=== PATIENT | female | born 1950 | race Caucasian/White ===

== ENCOUNTER 2017-11-27 11:57 | Inpatient (IN) | payer MEDICARE ==
[~2017-11-27] VITALS: Ht 167.6 cm; Wt 108.6 kg
[~2017-11-27 11:57] MED LIST: ACET-76 PO; ADAL20KI SC; ADAL40KI; ALEN35TA6 PO; AMLO5TAB2; AMLO5TAB2 PO; ANTIBIOTIC PO; CALC500T93 PO; CALCIUM PO; CELE100C PO; CEPH-368 PO; CHOL3000 PO; CLIN300C3 PO; DICL100G19; DICL100G19 TD; DICL100G19 TP; DOCU-131 PO; DULO30CA2 PO; DULO60CA7 PO; EPIN0.3A3 IM; FERR324T8 PO; FOLI-17; HYDR12.53; HYDR200T72 PO; LIDO700A5 TD; LISI-167 PO; LISI1TAB5 PO; LISI20TA; METH2.5T25; METO10TA82 PO; MULT-230 PO; MUPI22OI2 TP; PANT40TA5; PANT40TA5 PO; PRED2.5T PO; PRED5TAB26; ROSU40TA PO; SODI650T PO; TRAM50TA2 PO; VITA1TAB38; epi pen
[2017-11-27] MEDS ORDERED: LACTATED RINGERS 1,000 ML IV SCH (13:08)
[2017-11-27] MEDS ORDERED: TOBRAMYCIN SULFATE 1.2 GM IMP ONE (13:36)
[2017-11-27] MEDS ORDERED: MIDAZOLAM 1 MG/ML, 2ML ONE (15:02)
[2017-11-27] MEDS ORDERED: ONDANSETRON 2MG/ML, 2ML ONE ×2 (15:27→19:10)
[2017-11-27] MEDS ORDERED: LABETALOL 5MG/ML, 20ML ONE (15:27)
[2017-11-27] MEDS ORDERED: DEXAMETHASONE 4 MG/ML, 1ML ONE (15:27)
[2017-11-27] MEDS ORDERED: PROPOFOL 10 MG/ML, 50ML ONE (15:27)
[2017-11-27] MEDS ORDERED: CLINDAMYCIN 150 MG/ML, 6ML ONE (15:39)
[2017-11-27] MEDS ORDERED: ALBUTEROL SULFATE 2.5 MG/3 ML NPPB PRN (17:00)
[2017-11-27] MEDS ORDERED: OXYcodone 5 MG/5 ML ORAL.SOL UDC PO PRN (17:00)
[2017-11-27] MEDS ORDERED: HYDROmorphone 1 MG/ML, 1ML IV PRN ×2 (17:00→21:30)
[2017-11-27] MEDS ORDERED: LABETALOL 5MG/ML, 20ML IV PRN (17:00)
[2017-11-27] MEDS ORDERED: KETOROLAC 30 MG/1 ML IV PRN (17:00)
[2017-11-27] MEDS ORDERED: PROMETHAZINE 25 MG/ML, 1ML IV PRN (17:00)
[2017-11-27] MEDS ORDERED: ONDANSETRON ODT 8 MG PO PRN (17:00)
[2017-11-27] MEDS ORDERED: HYDROmorphone 2 MG/ML, 1ML ONE (17:20)
[2017-11-27] MEDS: ONDANSETRON 2MG/ML, 2ML IV PRN (19:16)
[2017-11-27] MEDS ORDERED: BISACODYL 10 MG SUPP PR PRN (21:00)
[2017-11-27] MEDS: SODIUM CHLORIDE FLUSH 10ML SYR IVF SCH (21:00)
[2017-11-27] MEDS ORDERED: ACETAMINOPHEN 500 MG TABLET PO PRN (21:30)
[2017-11-27] MEDS ORDERED: ONDANSETRON 2MG/ML, 2ML IV PRN (21:30)
[2017-11-27] MEDS ORDERED: ALENDRONATE 35 MG TABLET PO SCH (21:30)
[2017-11-27] MEDS: POTASSIUM CHLORIDE 20 MEQ in D5%-0.45% NACL 1,000 ML IV SCH (21:54)
[2017-11-27] MEDS: DOCUSATE 100 MG CAPSULE PO SCH (21:55)
[2017-11-27] MEDS: CLINDAMYCIN PMX 900MG/50ML 50 ML IVPB SCH (23:25)
[2017-11-28 00:50] VITALS: BP 111/69
[2017-11-28 07:17] VITALS: BP 114/72
[2017-11-28] MEDS: CLINDAMYCIN PMX 900MG/50ML 50 ML IVPB SCH (08:06)
[2017-11-28] MEDS ORDERED: AMLODIPINE 5 MG TABLET PO SCH (09:00)
[2017-11-28] MEDS ORDERED: HYDROmorphone 1 MG/ML, 1ML IV PRN (09:30)
[2017-11-28] MEDS: PANTOPROZOLE 40MG TABLET PO SCH ×2 (09:37→20:28)
[2017-11-28] MEDS: MULTIVITAMINS/MINERALS TABLET PO SCH ×2 (09:37→20:28)
[2017-11-28] MEDS: FERROUS GLUCONATE 324 MG TABLET PO SCH (09:37)
[2017-11-28] MEDS: DULOXETINE 30 MG CAPSULE.DR PO SCH ×2 (09:37→20:28)
[2017-11-28] MEDS: DOCUSATE 100 MG CAPSULE PO SCH ×4 (09:37→20:29)
[2017-11-28] MEDS: CHOLECALCIFEROL 1,000 UNIT TABLET PO SCH (09:38)
[2017-11-28 09:45] VITALS: BP 98/54
[2017-11-28] MEDS: CALCIUM CARBONATE 500 MG TABLET PO SCH (09:53)
[2017-11-28] MEDS: LISINOPRIL 10 MG TABLET PO SCH (09:55)
[2017-11-28] MEDS: SODIUM CHLORIDE FLUSH 10ML SYR IVF SCH ×2 (09:58→20:29)
[2017-11-28] MEDS ORDERED: LIDODERM 5% PATCH TD PRN (10:30)
[2017-11-28] MEDS: HYDROmorphone 2MG TABLET PO PRN ×3 (10:34→20:28)
[2017-11-28] MEDS: SODIUM BICARBONATE 650 MG TABLET PO SCH ×2 (10:34→20:28)
[2017-11-28] MEDS: ONDANSETRON 2MG/ML, 2ML IV PRN (11:16)
[2017-11-28] MEDS ORDERED: ACETAMINOPHEN 500 MG TABLET PO PRN (11:30)
[2017-11-28] MEDS: POTASSIUM CHLORIDE 20 MEQ in D5%-0.45% NACL 1,000 ML IV SCH (12:13)
[2017-11-28] MEDS ORDERED: HYDROmorphone 2 MG/ML, 1ML ONE ×3 (12:47→23:27)
[2017-11-28] MEDS: HYDROmorphone 1 MG/ML, 1ML IV PRN ×3 (12:57→23:30)
[2017-11-28] MEDS: ACETAMINOPHEN 500 MG TABLET PO PRN ×2 (15:30→21:40)
[2017-11-28 15:39] VITALS: BP 118/61
[2017-11-28] MEDS: ASPIRIN 325 MG TABLET PO SCH (18:13)
[2017-11-28] MEDS: SENNA/DOCUSATE TABLET PO PRN (18:14)
[2017-11-28 19:58] VITALS: BP 95/54
[2017-11-28] MEDS: ATORVASTATIN 80 MG TABLET PO SCH (20:28)
[2017-11-29] MEDS: HYDROmorphone 2MG TABLET PO PRN ×5 (00:29→18:16)
[2017-11-29 00:59] VITALS: BP 113/63
[2017-11-29] MEDS: POTASSIUM CHLORIDE 20 MEQ in D5%-0.45% NACL 1,000 ML IV SCH ×2 (02:39→13:54)
[2017-11-29] MEDS: ACETAMINOPHEN 500 MG TABLET PO PRN ×2 (04:38→13:24)
[2017-11-29] MEDS ORDERED: HYDROmorphone 2 MG/ML, 1ML ONE ×2 (06:18→10:40)
[2017-11-29] MEDS: HYDROmorphone 1 MG/ML, 1ML IV PRN ×3 (06:25→15:00)
[2017-11-29 06:50] VITALS: BP 103/62
[2017-11-29] MEDS: MULTIVITAMINS/MINERALS TABLET PO SCH ×2 (09:00→20:58)
[2017-11-29] MEDS: SODIUM CHLORIDE FLUSH 10ML SYR IVF SCH ×2 (09:00→21:00)
[2017-11-29] MEDS: FERROUS GLUCONATE 324 MG TABLET PO SCH (09:29)
[2017-11-29] MEDS: PANTOPROZOLE 40MG TABLET PO SCH ×2 (09:29→18:17)
[2017-11-29] MEDS: AMLODIPINE 5 MG TABLET PO SCH (09:29)
[2017-11-29] MEDS: CHOLECALCIFEROL 1,000 UNIT TABLET PO SCH (09:29)
[2017-11-29] MEDS: DOCUSATE 100 MG CAPSULE PO SCH ×4 (09:30→20:59)
[2017-11-29] MEDS: CALCIUM CARBONATE 500 MG TABLET PO SCH (09:31)
[2017-11-29] MEDS: DULOXETINE 30 MG CAPSULE.DR PO SCH ×2 (09:31→20:59)
[2017-11-29] MEDS: LISINOPRIL 10 MG TABLET PO SCH (09:51)
[2017-11-29] MEDS: SODIUM BICARBONATE 650 MG TABLET PO SCH ×2 (10:43→20:59)
[2017-11-29] MEDS: ONDANSETRON 2MG/ML, 2ML IV PRN (11:24)
[2017-11-29 12:57] VITALS: BP 141/68
[2017-11-29] MEDS: SENNA/DOCUSATE TABLET PO PRN (18:15)
[2017-11-29] MEDS: ASPIRIN 325 MG TABLET PO SCH (18:15)
[2017-11-29 19:52] VITALS: BP 99/56
[2017-11-29] MEDS: ATORVASTATIN 80 MG TABLET PO SCH (20:58)
[2017-11-29] MEDS: D5%-0.45NACL+KCL 20MEQ 1,000 ML IV SCH (21:30)
[2017-11-30 00:56] VITALS: BP 124/56
[2017-11-30] MEDS: ACETAMINOPHEN 500 MG TABLET PO PRN ×3 (01:20→22:25)
[2017-11-30] MEDS: HYDROmorphone 2MG TABLET PO PRN (05:50)
[2017-11-30 06:15] VITALS: BP 111/70
[2017-11-30] MEDS: DOCUSATE 100 MG CAPSULE PO SCH ×4 (08:26→20:34)
[2017-11-30] MEDS: CHOLECALCIFEROL 1,000 UNIT TABLET PO SCH (08:26)
[2017-11-30] MEDS: SODIUM BICARBONATE 650 MG TABLET PO SCH ×2 (08:26→21:00)
[2017-11-30] MEDS: PANTOPROZOLE 40MG TABLET PO SCH ×2 (08:27→16:17)
[2017-11-30] MEDS: DULOXETINE 30 MG CAPSULE.DR PO SCH ×2 (08:27→20:33)
[2017-11-30] MEDS: MULTIVITAMINS/MINERALS TABLET PO SCH ×3 (08:27→20:36)
[2017-11-30] MEDS: LISINOPRIL 10 MG TABLET PO SCH (08:27)
[2017-11-30] MEDS: FERROUS GLUCONATE 324 MG TABLET PO SCH (08:27)
[2017-11-30] MEDS: AMLODIPINE 5 MG TABLET PO SCH (08:27)
[2017-11-30] MEDS: SODIUM CHLORIDE FLUSH 10ML SYR IVF SCH ×2 (08:29→20:33)
[2017-11-30] MEDS: CALCIUM CARBONATE 500 MG TABLET PO SCH (08:29)
[2017-11-30] MEDS: D5%-0.45NACL+KCL 20MEQ 1,000 ML IV SCH ×2 (08:31→21:53)
[2017-11-30 12:10] VITALS: BP 101/67
[2017-11-30] MEDS: POLYETHYLENE GLYCOL 17 GM PACKET PO SCH (13:22)
[2017-11-30] MEDS: ASPIRIN 325 MG TABLET PO SCH (16:17)
[2017-11-30 19:21] VITALS: BP 127/62
[2017-11-30] MEDS: ATORVASTATIN 80 MG TABLET PO SCH (20:33)
[2017-12-01] MEDS: HYDROmorphone 2MG TABLET PO PRN ×2 (00:40→12:38)
[2017-12-01] MEDS: ONDANSETRON ODT 4 MG PO PRN ×2 (00:40→12:38)
[2017-12-01 02:58] VITALS: BP 135/61
[2017-12-01 06:25] VITALS: BP 106/73
[2017-12-01] MEDS ORDERED: ALENDRONATE 35 MG TABLET PO SCH (06:30)
[2017-12-01] MEDS: DOCUSATE 100 MG CAPSULE PO SCH ×2 (08:06→08:08)
[2017-12-01] MEDS: FERROUS GLUCONATE 324 MG TABLET PO SCH (08:06)
[2017-12-01] MEDS: MULTIVITAMINS/MINERALS TABLET PO SCH (08:06)
[2017-12-01] MEDS: POLYETHYLENE GLYCOL 17 GM PACKET PO SCH (08:07)
[2017-12-01] MEDS: CHOLECALCIFEROL 1,000 UNIT TABLET PO SCH (08:07)
[2017-12-01] MEDS: AMLODIPINE 5 MG TABLET PO SCH (08:07)
[2017-12-01] MEDS: SODIUM BICARBONATE 650 MG TABLET PO SCH (08:07)
[2017-12-01] MEDS: DULOXETINE 30 MG CAPSULE.DR PO SCH (08:07)
[2017-12-01] MEDS: PANTOPROZOLE 40MG TABLET PO SCH (08:08)
[2017-12-01] MEDS: LISINOPRIL 10 MG TABLET PO SCH (08:08)
[2017-12-01] MEDS: SODIUM CHLORIDE FLUSH 10ML SYR IVF SCH (08:08)
[2017-12-01] MEDS: CALCIUM CARBONATE 500 MG TABLET PO SCH (08:08)
[2017-12-01] MEDS ORDERED: POLY17PO5 PO (10:59)
[2017-12-01] MEDS ORDERED: BISA10SU54 PR (11:00)
[2017-12-01] MEDS ORDERED: SENN1TAB7 PO (11:02)
[2017-12-01] MEDS ORDERED: HYDR2TAB29 PO (11:31)
[2017-12-01 12:20] VITALS: BP 116/61
== END 2017-12-01 13:30 | DRG 493 ==
LOC: OUT 11:57 → 4NOR 20:13 → OUT 20:33 → 4NOR 20:43
PROVIDERS: ADMIT Orthopaedic Surgery; ATTEND Orthopaedic Surgery
PROC: 0SGF0JZ Fusion of Right Ankle Joint with Synthetic Substitute, Open Approach (ICD-10-PCS; 2017-11-27)
PROC: 0SGH07Z Fusion of Right Tarsal Joint with Autologous Tissue Substitute, Open Approach (ICD-10-PCS; 2017-11-27)
PROC: 0LSN0ZZ Reposition Right Lower Leg Tendon, Open Approach (ICD-10-PCS; 2017-11-27)
PROC: 0QUG07Z Supplement Right Tibia with Autologous Tissue Substitute, Open Approach (ICD-10-PCS; 2017-11-27)
PROC: 0QSL04Z Reposition Right Tarsal with Internal Fixation Device, Open Approach (ICD-10-PCS; principal; 2017-11-27 14:30)
DX: M21.179 Varus deformity, not elsewhere classified, unspecified ankle (principal); R71.0 Precipitous drop in hematocrit; M06.9 Rheumatoid arthritis, unspecified; S93.06XA Dislocation of unspecified ankle joint, initial encounter; M19.071 Primary osteoarthritis, right ankle and foot; K59.00 Constipation, unspecified; M21.40 Flat foot [pes planus] (acquired), unspecified foot; E66.01 Morbid (severe) obesity due to excess calories; E78.5 Hyperlipidemia, unspecified; M21.961 Unspecified acquired deformity of right lower leg; X58.XXXA Exposure to other specified factors, initial encounter; Y93.89 Activity, other specified; Y92.89 Other specified places as the place of occurrence of the external cause; Z88.7 Allergy status to serum and vaccine; Z88.0 Allergy status to penicillin; Z88.2 Allergy status to sulfonamides; Z88.5 Allergy status to narcotic agent; Z88.8 Allergy status to other drugs, medicaments and biological substances; Z91.030 Bee allergy status; Z68.36 Body mass index [BMI] 36.0-36.9, adult
CPT/HCPCS: 36415; 76001; 85014; 85018; C1713; J1100; J1170; J2250; J2405; J2704; J3260; J3480; Q0162; C1762; J7120

== ENCOUNTER → 2018-03-25 | Outpatient (CLI) | payer MEDICARE ==
[~2018-03-25] MED LIST changes: +AMLO-150; +AMLO-150 PO; -AMLO5TAB2; -AMLO5TAB2 PO; +BISA10SU54 PR; +HYDR12.517; -HYDR12.53; +HYDR2TAB29 PO; +POLY17PO5 PO; +SENN1TAB8 PO
== END | disposition home or self-care (01) ==
LOC: CFH 11:25 → EDSTATUS 13:00
PROVIDERS: ATTEND Internal Medicine
DX: R60.0 Localized edema (principal)
CPT/HCPCS: 93970

== ENCOUNTER → 2018-03-31 | Outpatient (CLI) | payer MEDICARE ==
[~2018-03-31] MED LIST changes: +REGADENOSON 0.4 MG/5 ML SYRINGE ONE
== END | disposition home or self-care (01) ==
LOC: CFH 07:40
PROVIDERS: ATTEND Internal Medicine
DX: R07.9 Chest pain, unspecified (principal); R06.02 Shortness of breath; Z86.14 Personal history of Methicillin resistant Staphylococcus aureus infection
CPT/HCPCS: 78452; 93017; A9502; J2785

== ENCOUNTER 2018-10-13 06:23 | Inpatient (IN) | payer MEDICARE ==
[~2018-10-13] VITALS: Ht 167.6 cm; Wt 102.8 kg
[~2018-10-13 06:23] MED LIST changes: -MULT-230 PO; +MULT-806 PO; -REGADENOSON 0.4 MG/5 ML SYRINGE ONE; +SENN-177 PO; -SENN1TAB8 PO
--- NOTE | 2018-10-13 06:40 | NUR ---
pt reports n/v that started yesterday. pain in abd 10/10, epigastric area.
[2018-10-13] MEDS ORDERED: SODIUM CHLORIDE 0.9% 1,000ML IVBOLUS ONE (07:00)
[2018-10-13] MEDS ORDERED: ONDANSETRON 2MG/ML, 2ML IVPush ONE (07:00)
[2018-10-13] MEDS ORDERED: SODIUM CHLORIDE FLUSH 10ML SYR IVF ONE (07:00)
[2018-10-13] MEDS ORDERED: HYDROmorphone 2 MG/ML, 1ML ONE (07:02)
[2018-10-13] MEDS ORDERED: ONDANSETRON 2MG/ML, 2ML ONE (07:02)
[2018-10-13] MEDS: HYDROmorphone 2 MG/ML, 1ML IVPush PRN ×2 (07:05→14:55)
--- NOTE | 2018-10-13 07:07 | NUR ---
report given to fabienne astudillo
[2018-10-13 07:21] LABS: BASOPHILS # (AUTO) 0.03 x10^3/uL (0-0.1); BASOPHILS % (AUTO) 0 % (0-1); EOSINOPHILS # (AUTO) 0.01 x10^3/uL (0-0.4); EOSINOPHILS % (AUTO) 0 % (1-7); LYMPHOCYTES # (AUTO) 0.65 x10^3/uL (1-3.4); LYMPHOCYTES % (AUTO) 5 % (22-44); MD NO; MEAN CORPUSCULAR HEMOGLOBIN 29.7 pg (27.0-34.8); MEAN CORPUSCULAR HGB CONC 32.6 g/dL (32.4-35.8); MEAN CORPUSCULAR VOLUME 91.3 fL (80-100); MEAN PLATELET VOLUME 8.4 fL (7.4-10.4); MONOCYTES # (AUTO) 0.23 x10^3/uL (0.2-0.8); MONOCYTES % (AUTO) 2 % (2-9); NEUTROPHILS # (AUTO) 11.82 x10^3/uL (1.8-6.8); NEUTROPHILS % (AUTO) 93 % (42-75); PLATELET COUNT 271 x10^3/uL (130-400); RED BLOOD COUNT 4.27 x10^6/uL (3.82-5.3); RED CELL DISTRIBUTION WIDTH 14.6 % (9.6-15.2)
[2018-10-13 07:33] LABS: ALANINE AMINOTRANSFERASE 26 U/L (12-78); ALBUMIN 3.6 g/dL (3.4-5.0); ANION GAP 10 mmol/L (5-15); CALCIUM 9.5 mg/dL (8.5-10.1); CHLORIDE 105 mmol/L (98-107); CREATININE 1.64 mg/dL (0.55-1.02)
[2018-10-13 07:36] LABS: ALKALINE PHOSPHATASE 96 U/L (45-117); BILIRUBIN,TOTAL 0.3 mg/dL (0.2-1.0); TOTAL PROTEIN 7.8 g/dL (6.4-8.2)
--- NOTE | 2018-10-13 07:47 | NUR ---
GIVEN dilaudid iv with zofran iv per pt's vomittng w/ abdomen pain applied oxygen via nc 2 liters d/t sats dropped after given dilaudid iv pt is resting pt is imaging now
[2018-10-13] MEDS ORDERED: HYDR200T72 PO (08:09)
--- NOTE | 2018-10-13 09:10 | NUR ---
notified to pt strict NPO for now
--- NOTE | 2018-10-13 09:43 | NUR ---
still waiting for surgeon eval at bed side vss
--- NOTE | 2018-10-13 10:00 | NUR ---
SBAR FROM FUNMI GARCIA. PT CARE TO BE ASSUMED. PT AWAKE, ALERT, RESTING ON BED W/ SIDE RAILS UP X2, CALL LIGHT W/IN REACH. PT ASKING ABOUT FLUIDS. RADHA REMINDED PT OF HER NPO STATUS. PT CONCERNED THAT SHE'S NOT GETTING ADDITIONAL IVF CURRENTLY, STATES "IT'S GOING TO HURT MY KIDNEYS IF I DON'T GET ANY". INFORMED PT THAT ORDERS WILL BE REVIEWED.
[2018-10-13] MEDS ORDERED: SODIUM CHLORIDE 0.9% 1,000 ML IV ONE (10:11)
--- NOTE | 2018-10-13 10:34 | NUR ---
PER PT, DR AMARO WAS JUST INFORMED PT SHE WILL NOT BE GETTING ANY NARCOTICS SOON, BUT MAY HAVE TYLENOL. PT REPORTS "I HAVE BAD KIDNEYS AND I NEED LOTS OF WATER"; PT UNABLE TO PROVIDE KIDNEY DX. C/O GENERALIZED ABD PAIN. LAST BM: "IN THE MIDDLE OF THE NIGHT- SOME DIARRHEA AND SOME POOP". LAST ORAL INTAKE: 1600 YESTERDAY, WATER AFTER.
--- NOTE | 2018-10-13 10:44 | NUR ---
MONITORING EQUIPMENT ON: NSR.
--- NOTE | 2018-10-13 11:00 | NUR ---
PT REPORT TO FUNMI DAMIAN FOR ROOM 477. WILL INITIATE NEW IV ACCESS PRIOR TO SENDING PT TO FLOOR.
--- NOTE | 2018-10-13 11:40 | NUR ---
IV ATTEMPTED X 2 PER ANNA STEPHENSON. U/S IV ATTEMPT TO BE DONE.
--- NOTE | 2018-10-13 12:59 | NUR ---
MULTIPLE U/S IV ATTEMPTS MADE PER ANNA QUINN. FUNMI PRITCHARD BS FOR NEW ATTEMPTS.
[2018-10-13 13:43] VITALS: BP 141/78
[2018-10-13] MEDS ORDERED: ONDANSETRON 2MG/ML, 2ML IVPush PRN ×2 (14:30→16:30)
[2018-10-13] MEDS ORDERED: HYDROmorphone 1 MG/ML, 1ML INJ IV PRN (14:30)
[2018-10-13] MEDS ORDERED: HYDROmorphone 2 MG/ML, 1ML IVPush PRN (16:30)
[2018-10-13] MEDS ORDERED: METOCLOPRAMIDE 5 MG/ML, 2ML IVPush PRN (16:30)
[2018-10-13] MEDS ORDERED: PROMETHAZINE 25 MG/ML, 1ML IM PRN (16:30)
[2018-10-13] MEDS ORDERED: PHARMACY MAY ADJ FOR RENAL FX MC PRN (16:30)
[2018-10-13] MEDS ORDERED: LABETALOL 5MG/ML, 20ML IVPush PRN (16:30)
[2018-10-13] MEDS: ENALAPRILAT 1.25 MG/ML, 2ML IVPush SCH (18:03)
[2018-10-13] MEDS: ENOXAPARIN 40 MG/0.4 ML SQ SCH (18:03)
[2018-10-13] MEDS: SODIUM CHLORIDE 0.9% 1,000 ML IV SCH (18:03)
[2018-10-13 18:07] LABS: MICROSCOPIC AUTO
[2018-10-13 18:08] LABS: CULTURE INDICATED? YES
[2018-10-13 18:09] VITALS: BP 140/82
[2018-10-14] MEDS: ENALAPRILAT 1.25 MG/ML, 2ML IVPush SCH ×3 (00:10→14:55)
[2018-10-14] MEDS: SODIUM CHLORIDE 0.9% 1,000 ML IV SCH ×2 (03:03→16:30)
[2018-10-14 03:05] VITALS: BP 115/75
[2018-10-14 05:22] VITALS: BP 110/49
[2018-10-14 05:29] LABS: BASOPHILS % (AUTO) 0 % (0-1); EOSINOPHILS % (AUTO) 3 % (1-7); LYMPHOCYTES % (AUTO) 26 % (22-44); MD NO; MEAN CORPUSCULAR HEMOGLOBIN 30.8 pg (27.0-34.8); MEAN CORPUSCULAR HGB CONC 33.1 g/dL (32.4-35.8); MEAN CORPUSCULAR VOLUME 93.1 fL (80-100); MEAN PLATELET VOLUME 8.6 fL (7.4-10.4); MONOCYTES # (AUTO) 0.46 x10^3/uL (0.2-0.8); MONOCYTES % (AUTO) 7 % (2-9); NEUTROPHILS # (AUTO) 4.07 x10^3/uL (1.8-6.8); NEUTROPHILS % (AUTO) 63 % (42-75); PLATELET COUNT 201 x10^3/uL (130-400); RED BLOOD COUNT 3.39 x10^6/uL (3.82-5.3); RED CELL DISTRIBUTION WIDTH 14.9 % (9.6-15.2)
[2018-10-14 05:41] LABS: ALANINE AMINOTRANSFERASE 21 U/L (12-78); ALBUMIN 3.1 g/dL (3.4-5.0); ANION GAP 9 mmol/L (5-15); CALCIUM 8.6 mg/dL (8.5-10.1); CHLORIDE 114 mmol/L (98-107); CREATININE 1.39 mg/dL (0.55-1.02)
[2018-10-14 05:43] LABS: ALKALINE PHOSPHATASE 85 U/L (45-117); BILIRUBIN,TOTAL 0.3 mg/dL (0.2-1.0); TOTAL PROTEIN 6.3 g/dL (6.4-8.2)
[2018-10-14] MEDS ORDERED: PANTOPRAZOLE 40 MG IV IVPush SCH (07:30)
[2018-10-14] MEDS ORDERED: MAGNESIUM SULFATE PMX 2GM/50ML 50 ML IV ONE (07:30)
[2018-10-14 08:49] VITALS: BP 123/78
[2018-10-14 14:28] VITALS: BP 121/80
[2018-10-14] MEDS ORDERED: DOCUSATE 50 MG/5 ML, 10ML UDC PO PRN (15:00)
[2018-10-14] MEDS: ENOXAPARIN 40 MG/0.4 ML SQ SCH (18:00)
[2018-10-14] MEDS ORDERED: CIPR500T3 PO (18:15)
[2018-10-14] MEDS ORDERED: CIPROFLOXACIN 250 MG TABLET PO SCH (21:00)
== END 2018-10-14 18:54 | disposition home or self-care (01) | DRG 871 ==
LOC: ED 07:37 → SUATTDRO 09:12 → EDIP 09:47 → 4NOR 13:19
PROVIDERS: ADMIT Internal Medicine; ATTEND Internal Medicine
DX: A41.9 Sepsis, unspecified organism (principal); N17.0 Acute kidney failure with tubular necrosis; E87.2 Acidosis; K56.609 Unspecified intestinal obstruction, unspecified as to partial versus complete obstruction; N39.0 Urinary tract infection, site not specified; L02.211 Cutaneous abscess of abdominal wall; B95.8 Unspecified staphylococcus as the cause of diseases classified elsewhere; D50.9 Iron deficiency anemia, unspecified; Z66 Do not resuscitate; E11.22 Type 2 diabetes mellitus with diabetic chronic kidney disease; Z68.36 Body mass index [BMI] 36.0-36.9, adult; E78.5 Hyperlipidemia, unspecified; E83.42 Hypomagnesemia; E66.01 Morbid (severe) obesity due to excess calories; G89.29 Other chronic pain; K21.9 Gastro-esophageal reflux disease without esophagitis; N18.3 Chronic kidney disease, stage 3 (moderate); I12.9 Hypertensive chronic kidney disease with stage 1 through stage 4 chronic kidney disease, or unspecified chronic kidney disease; K43.2 Incisional hernia without obstruction or gangrene; M06.9 Rheumatoid arthritis, unspecified; Z79.899 Other long term (current) drug therapy; Z86.14 Personal history of Methicillin resistant Staphylococcus aureus infection; Z86.718 Personal history of other venous thrombosis and embolism; Z87.891 Personal history of nicotine dependence
CPT/HCPCS: 36415; 71045; 74021; 74176; 74250; 80053; 81001; 83605; 83690; 83735; 84100; 85025; 87086; 87147; 96361; 96374; G0378; J1170; J1650; J2405; C9113; J3475; J7030

== ENCOUNTER → 2019-05-23 | Outpatient (CLI) | payer MEDICARE, MEDICAID ==
[~2019-05-23] MED LIST changes: +ALEN35TA13 PO; -ALEN35TA6 PO; +CIPR500T3 PO; +LACTATED RINGERS 1,000 ML IV SCH; +LISI1TAB19 PO; -LISI1TAB5 PO; +PLEASE ENTER HEIGHT AND WEIGHT MC SCH
[2019-05-23 10:45] LABS: BASOPHILS # (AUTO) 0.01 x10^3/uL (0-0.1); BASOPHILS % (AUTO) 0 % (0-1); EOSINOPHILS # (AUTO) 0.22 x10^3/uL (0-0.4); EOSINOPHILS % (AUTO) 4 % (1-7); LYMPHOCYTES # (AUTO) 1.36 x10^3/uL (1-3.4); LYMPHOCYTES % (AUTO) 27 % (22-44); MD NO; MEAN CORPUSCULAR HEMOGLOBIN 29.8 pg (27.0-34.8); MEAN CORPUSCULAR HGB CONC 33.1 g/dL (32.4-35.8); MEAN CORPUSCULAR VOLUME 90.1 fL (80-100); MEAN PLATELET VOLUME 8.8 fL (7.4-10.4); MONOCYTES # (AUTO) 0.23 x10^3/uL (0.2-0.8); MONOCYTES % (AUTO) 4 % (2-9); NEUTROPHILS % (AUTO) 65 % (42-75); PLATELET COUNT 249 x10^3/uL (130-400); RED CELL DISTRIBUTION WIDTH 14.1 % (9.6-15.2)
[2019-05-23 10:56] LABS: ALANINE AMINOTRANSFERASE 25 U/L (12-78); ALBUMIN 3.4 g/dL (3.4-5.0); ANION GAP 8 mmol/L (5-15); CALCIUM 8.6 mg/dL (8.5-10.1); CHLORIDE 105 mmol/L (98-107); CREATININE 1.32 mg/dL (0.55-1.02); INTERNATIONAL NORMALIZED RATIO 0.95 (0.93-1.1); PROTHROMBIN TIME 10.1 Seconds (9.6-11.5)
[2019-05-23 10:58] LABS: ALKALINE PHOSPHATASE 111 U/L (45-117); BILIRUBIN,TOTAL 0.3 mg/dL (0.2-1.0); TOTAL PROTEIN 7.2 g/dL (6.4-8.2)
== END | disposition home or self-care (01) ==
LOC: STAR 08:57
PROVIDERS: ATTEND Neurological Surgery
DX: Z01.818 Encounter for other preprocedural examination (principal); M48.062 Spinal stenosis, lumbar region with neurogenic claudication
CPT/HCPCS: 36415; 71046; 80053; 85025; 85610; 85730; 93005

== ENCOUNTER 2020-02-19 17:43 | Emergency (ER) | payer MEDICARE, MEDICAID ==
[~2020-02-19] VITALS: Ht 167.6 cm; Wt 80.0 kg
[~2020-02-19 17:43] MED LIST changes: -ALEN35TA13 PO; +ALEN35TA49 PO; +HYDR2TAB40 PO; -LACTATED RINGERS 1,000 ML IV SCH; -LISI1TAB19 PO; +LISI1TAB39 PO; +METH750T2 PO; -PANT40TA5; -PANT40TA5 PO; +PANT40TA6; +PANT40TA6 PO; -PLEASE ENTER HEIGHT AND WEIGHT MC SCH; +TIZA4TAB9 PO
[2020-02-19] MEDS ORDERED: OMNIPAQUE 350 MG/ML, 100ML BOTTLE ONE (18:11)
[2020-02-19] MEDS ORDERED: ONDANSETRON 2MG/ML, 2ML ONE (18:18)
[2020-02-19] MEDS ORDERED: HYDROmorphone 1 MG/ML, 1ML INJ ONE ×2 (18:18→19:14)
[2020-02-19] MEDS ORDERED: ONDANSETRON 2MG/ML, 2ML IVPush ONE (18:30)
[2020-02-19] MEDS: HYDROmorphone 2 MG/ML, 1ML IVPush PRN ×2 (18:32→19:15)
--- NOTE | 2020-02-19 18:39 | NUR ---
PT W/ RLQ ABD PAIN SINCE THIS MORNING. HX OF 13 HERNIA REPAIRS. PIV EST AND PT MED NOTED FOR PAIN 01/13. 02 SATS DROP TO 85%, 2L 02 VIA NC PLACED WITH EFFECT
[2020-02-19 18:41] LABS: BASOPHILS % (AUTO) 0 % (0-1); EOSINOPHILS % (AUTO) 0 % (1-7); LYMPHOCYTES % (AUTO) 6 % (22-44); MEAN CORPUSCULAR HEMOGLOBIN 29.8 pg (27.0-34.8); MEAN CORPUSCULAR HGB CONC 32.6 g/dL (32.4-35.8); MEAN PLATELET VOLUME 9.2 fL (7.4-10.4); MONOCYTES % (AUTO) 2 % (2-9); NEUTROPHILS % (AUTO) 92 % (42-75); PLATELET COUNT 280 x10^3/uL (130-400); RED CELL DISTRIBUTION WIDTH 13.6 % (9.6-15.2)
[2020-02-19 18:44] LABS: ALANINE AMINOTRANSFERASE 24 U/L (12-78); ANION GAP 7 mmol/L (5-15); CALCIUM 9.5 mg/dL (8.5-10.1); CHLORIDE 103 mmol/L (98-107); CREATININE 1.38 mg/dL (0.55-1.02)
[2020-02-19 18:46] LABS: ALKALINE PHOSPHATASE 111 U/L (45-117); BILIRUBIN,TOTAL 0.4 mg/dL (0.2-1.0); TOTAL PROTEIN 7.8 g/dL (6.4-8.2)
--- NOTE | 2020-02-19 18:46 | NUR ---
BEDSIDE SBAR RPT TO FUNMI NOE .
[2020-02-19 18:48] LABS: MD NO
--- NOTE | 2020-02-19 19:22 | NUR ---
Pt returned from CT, Patient cont to complain of pain. 11/13. Second dose of pain medication given per JUN. VSS, call light within reach
--- NOTE | 2020-02-19 20:44 | NUR ---
Med Rec completed at this time
--- NOTE | 2020-02-19 21:58 | NUR ---
Patient placed in hospital bed for comfort and skin intergity. Patient ambulated with a steady gait to and from the restroom. VSS
[2020-02-19] MEDS ORDERED: ONDANSETRON 2MG/ML, 2ML IVPush PRN (22:00)
[2020-02-19] MEDS ORDERED: morphine SULFATE 10 MG/ML, 1ML IVPush PRN (22:00)
[2020-02-19] MEDS ORDERED: hydrALAzine 20 MG/ML, 1ML IVPush PRN (22:00)
[2020-02-19] MEDS ORDERED: LACTATED RINGERS 1,000 ML IV SCH (22:00)
[2020-02-19 22:39] LABS: MICROSCOPIC AUTO
[2020-02-20 05:26] LABS: ANION GAP 6 mmol/L (5-15); CALCIUM 8.9 mg/dL (8.5-10.1); CHLORIDE 107 mmol/L (98-107); CREATININE 1.29 mg/dL (0.55-1.02)
--- NOTE | 2020-02-20 07:15 | NUR ---
PT AMBULATES WELL INDEPENDENTLY BACK FROM BATHROOM. NAD NOTED AT THIS TIME. PT DENIES PAIN. IVF HOOKED BACK UP. VSS. IV REPOSITIONED WITH NEW TEGADERM FOR IMPROVED FLOW. PT PROVIDED WITH COMB, TOOTHBRUSH AND TOOTHPASTE PER PT REQUEST. PT AWARE OF NPO. ADDITIONAL ORAL SWABS PROVIDED. PT SITTING RECLINED IN BED WITH TELEVISION ON AND CELL PHONE IN USE.
--- NOTE | 2020-02-20 08:32 | NUR ---
PT SITTING UP IN BED WATCHING TELEVISION. NAD NOTED AT THIS TIME. IV INFUSING PROPERLY.
[2020-02-20] MEDS ORDERED: BISACODYL 10 MG SUPP PR SCH (09:00)
--- NOTE | 2020-02-20 09:17 | NUR ---
PT REQUESTING PERSONAL GI MD RATHER THAN MD WHO HAS COME IN TO ASSESS PT. DISCUSSION WITH THROUGHPUT REGARDING PT'S CONCERN. PER ASSESSING GI MD, HE "WILL CONTACT DR AMARO".
[2020-02-20 09:38] LABS: BASOPHILS % (AUTO) 1 % (0-1); EOSINOPHILS % (AUTO) 1 % (1-7); LYMPHOCYTES % (AUTO) 18 % (22-44); MEAN CORPUSCULAR HEMOGLOBIN 29.5 pg (27.0-34.8); MEAN CORPUSCULAR HGB CONC 32.5 g/dL (32.4-35.8); MEAN PLATELET VOLUME 9.6 fL (7.4-10.4); MONOCYTES % (AUTO) 6 % (2-9); NEUTROPHILS % (AUTO) 75 % (42-75); PLATELET COUNT 258 x10^3/uL (130-400); RED BLOOD COUNT 4.26 x10^6/uL (3.82-5.3); RED CELL DISTRIBUTION WIDTH 13.8 % (9.6-15.2)
[2020-02-20 09:47] LABS: MD NO
[2020-02-20] MEDS ORDERED: morphine SULFATE 10 MG/ML, 1ML IVPush PRN (10:00)
--- NOTE | 2020-02-20 10:02 | NUR ---
WAITING FOR MED FROM PHARMACY. CONTACT MADE WITH DR NELSON. PER HOSPITALIST, ANOTHER PAGE FOR CONTACT MADE WITH PT'S GI MD DR AMARO.
--- NOTE | 2020-02-20 10:48 | NUR ---
CALL TO JOAN BRITT FOR DC PREPARATION.
--- NOTE | 2020-02-20 11:31 | NUR ---
DISCUSSION WITH DR NELSON, WHO REPORTS SO LONG PT CAN TOLERATE PO NUTRITION AND FLUID, SHE MAY BE DC'ED. FOOD TRAY ORDERED. PO FLUIDS AT BEDSIDE. PT ADVISED TO START SLOWLY. PT SITTING UP IN BED USING CELL PHONE. NAD NOTED AT THIS TIME.
--- NOTE | 2020-02-20 11:50 | NUR ---
PT DISCONNECTED FOR BATHROOM USE, PREPARING TO LEAVE AND GETTING DRESSED. PT AWARE OF NEED TO CALL FOR HELP AND PLAN OF STAY AND DC PLANS.
--- NOTE | 2020-02-20 11:57 | NUR ---
PT AMBULATES WELL TO BATHROOM INDEPENDENTLY. ASKS FOR PRIVACY, DENIES WANTING RN OR TECH ESCORT.
--- NOTE | 2020-02-20 13:02 | NUR ---
MEAL TRAY GIVEN TO PT, NAD NOTED AT THIS TIME. PT TOLERATING PO INTAKE WELL.
--- NOTE | 2020-02-20 13:54 | NUR ---
DISCUSSION WITH PT REGARDING DC INSTRUCTIONS. NO FURTHER QUESTIONS. CURRENTLY WAITING ON BROTHER TO BRING PT CLOTHES AND PICK HER UP.
[2020-02-20 13:59] VITALS: BP 123/75
[2020-02-20] MEDS ORDERED: LACTATED RINGERS 1,000 ML IV SCH (22:00)
== END 2020-02-20 14:59 | disposition home or self-care (01) ==
LOC: ED 20:53 → UNDOADMIN 21:51 → EDIP 21:51
DX: K56.600 Partial intestinal obstruction, unspecified as to cause (principal); E87.1 Hypo-osmolality and hyponatremia; K21.9 Gastro-esophageal reflux disease without esophagitis; I12.9 Hypertensive chronic kidney disease with stage 1 through stage 4 chronic kidney disease, or unspecified chronic kidney disease; K56.7 Ileus, unspecified; N18.30 Chronic kidney disease, stage 3 unspecified; E66.9 Obesity, unspecified
CPT/HCPCS: 36415; 74018; 74177; 80048; 80053; 81001; 83690; 85025; 87077; 87086; 87186; 96361; 96374; 96375; 96376; 99285; J1170; J2405; J7120; Q9967